=== PATIENT | female | born 1980 | race American Indian/Alaskan Native ===

== ENCOUNTER 2016-05-22 13:29 | Emergency (ER) | payer SELFPAY ==
[2016-05-22 14:17] VITALS: BP 120/82
[2016-05-22] MEDS ORDERED: PEPCID PO ONE (17:33)
[2016-05-22] MEDS ORDERED: VISTARIL IM ONE (17:33)
[2016-05-22] MEDS ORDERED: TYLENOL PO ONE (17:33)
--- NOTE | 2016-05-22 17:37 | Emergency Department Report ---
HPI - General Chief Complaint: Allergic Reaction - HPI HPI: 35-year-old female comes in for complaint of allergic reaction since yesterday. Patient complains of hives all over; swelling to the hands, lips since yesterday. Patient reports she has been taking Benadryl. The last dose was 6 AM this morning she's also been using calamine lotion without much relief. Patient does admit that her lip swelling has decreased. She is complaining of itching all over. She does admit to washing her clothes in [place] which was new. She usually washes her clothes in [place]. She also remembers picking a flower yesterday and not sure if that could have been a reaction as well. ED Past Medical Hx - Past Medical History Previous Medical History?: No - Surgical History Additional Surgical History: X 3 - Social History Smoking Status: Never Smoker Substance Use Type: Marijuana - Medications Home Medications: Home Medications Medication Instructions Recorded Confirmed Last Taken Type Famotidine [Pepcid] 20 mg PO BID #20 tablet 05/22/16 Unknown Rx Prednisone [predniSONE 5 mg (6-Day 5 mg PO .TAPER #1 tab.ds.pk 05/22/16 Unknown Rx Pack, 21 Tabs)] hydrOXYzine PAMOATE [Vistaril] 25 mg PO Q6HR PRN #40 capsule 05/22/16 Unknown Rx ED Review of Systems ROS: Stated complaint: ALLERGIC REACTION/SWELLING Other details as noted in HPI Physical Exam - Physical Exam Vital Signs: Vital Signs 05/22/16 14:11 Temperature 98.6 F Pulse Rate 105 H Respiratory 18 Rate Blood Pressure 120/82 O2 Sat by Pulse 100 Oximetry Physical Exam: GENERAL: Alert and oriented x3, no apparent distress, Normal Gait, atraumatic. HEAD: Head is normocephalic and a-traumatic. EYES: Extra ocular muscles are intact. Pupils are equal, round, and reactive to light and accommodation. EARS: symetrical, atraumatic, non tender, ear canal clear and moderate cerumen, tympanic membrance non inflamed. gross auditory nml bilaterally. NOSE: Nose symetrical, Nontender,Nares appeared normal. MOUTH:Mouth is well hydrated and without lesions. Tonsils nonerythematous or swollen, Uvula midline, Tongue not elevated. Mucous membranes are moist. Posterior pharynx clear, no exudate or lesions. Patent airways. NECK: Supple. Non edematous, No carotid bruits. No lymphadenopathy or thyromegaly. LUNGS: Symetrical with respiration, No wheezing, no rales or crackles, CTAB. HEART: S1, S2 present, regular rate and rhythm without murmur, no rubs, no gallops. ABDOMEN: No organomegaly was noted,Positive bowel sounds, soft, and non- distended. . Nontender to palpation on all Quadrants, NO CVA tenderness. BREAST: Symetrical, Supple bilaterally, No Masses, lumps, lesions, ulcerations. GENITOURINARY: External genitalia without erythema, exudate or discharge. Vaginal vault is without discharge. Cervix is of normal color without lesion. Cervical os is closed. No bleeding noted. Uterus is noted to be of normal size and nontender. No cervical motion tenderness. No masses are palpated. The adnexa are without masses or tenderness. UROGENITAL: No scrotal mass, Scrotum non tender to palpation bilaterally, no hernia, no scars or penile discharge. EXTREMITIES/MUSCULOSKELETAL: No cyanosis, clubbing, rash, lesions or edema. Full ROM bilaterally. UE/LE Pulses 2+ bilaterally. LE and UE 5+ strength bilaterally NEUROLOGIC: No focal Deficit, Cranial nerves II through XII are grossly intact. No loss of sensation, No facial droop, PSYCHIATRIC: Mood is congruent with affect, SKIN: Warm and dry, No lesions, No ulceration or induration present patient has multiple areas of urticaria located face arms just trunk back legs. ED Course Vital Signs 05/22/16 14:11 Temperature 98.6 F Pulse Rate 105 H Respiratory 18 Rate Blood Pressure 120/82 O2 Sat by Pulse 100 Oximetry - Reevaluation(s) Reevaluation #1: 05/22/16 20:11 Patient reports that she feels better that the urticaria as are improving and not as inflamed. ED Medical Decision Making - Medical Decision Making She has been evaluated by this provider in fast track. We ordered Pepcid 20 mg by mouth Vistaril 25 mg by mouth and a Sakina Medrol 40 mg IM. Discussed with patient that we would discharge her on Pepcid 20 mg by mouth Vistaril 25 mg by mouth 4 times a day when necessary Medrol dose pack 5 mg taper. Patient verbalized understanding. You can take [id number] Claritin did not want to take the Vistaril Critical care attestation.: If time is entered above; I have spent that time in minutes in the direct care of this critically ill patient, excluding procedure time. ED Disposition Clinical Impression: Allergic reaction Qualifiers: Encounter type: initial encounter Qualified Code(s): T78.40XA - Allergy, unspecified, initial encounter Disposition: DISCHARGED TO HOME OR SELFCARE Is pt being admited?: No Does the pt Need Aspirin: No Condition: Stable Instructions: Urticaria (ED) Additional Instructions: Please take your medication as prescribed. If symptoms get worse or does not improve in the next 3-4 days' please follow-up in the emergency room or your primary care provider. Prescriptions: Famotidine [Pepcid] 20 mg PO BID #20 tablet hydrOXYzine PAMOATE [Vistaril] 25 mg PO Q6HR PRN #40 capsule PRN Reason: Itching Prednisone [predniSONE 5 mg (6-Day Pack, 21 Tabs)] 5 mg PO .TAPER #1 tab.ds.pk Referrals: PRIMARY CARE, [Primary Care Provider] - 3-5 Days Forms: Work/School Release Form(ED)
[2016-05-22] MEDS ORDERED: VISTARIL PO ONE (19:00)
== END 2016-05-22 20:22 | disposition home or self-care (01) ==
LOC: ED 13:29
DX: T78.49XA Other allergy, initial encounter (principal); X58.XXXA Exposure to other specified factors, initial encounter; F12.10 Cannabis abuse, uncomplicated
CPT/HCPCS: 96372; 99282; J2920; J3410; Q0177